=== PATIENT | female | born 1990 | race Caucasian/White ===

== ENCOUNTER 2018-12-28 02:02 | Emergency (ER) | payer SELFPAY ==
[~2018-12-28] VITALS: Ht 167.6 cm; Wt 67.0 kg
[2018-12-28 02:17] VITALS: BP 117/83
== END 2018-12-28 02:30 | disposition home or self-care (01) ==
LOC: ED 02:20
DX: S80.11XA Contusion of right lower leg, initial encounter (principal); W50.3XXA Accidental bite by another person, initial encounter; Y93.89 Activity, other specified; Y92.69 Other specified industrial and construction area as the place of occurrence of the external cause; Y99.8 Other external cause status
CPT/HCPCS: 99283